=== PATIENT | female | born 1970 ===

== ENCOUNTER 2016-11-23 15:32 | Outpatient (CLI) | payer OTHER ==
[2016-11-23 16:30] LABS: Basophils % (Auto) 0.9 % (0.0-1.8); Hematocrit 34.2 % (30.3-42.9); Mean Corpuscular HGB Conc 32 % (30-34); Mean Corpuscular Hemoglobin 28 pg (28-32); Mean Corpuscular Volume 88 fl (79-97); Platelet Count 243 K/mm3 (140-440); Red Blood Count 3.88 M/mm3 (3.65-5.03); Red Cell Distribution Width 16.6 % (13.2-15.2); White Blood Count 7.4 K/mm3 (4.5-11.0)
[2016-11-23 19:51] LABS: Alanine Aminotransferase 14 units/L (7-56); Albumin/Globulin Ratio 1.2 %; Alkaline Phosphatase 78 units/L (35-129); Anion Gap 23 mmol/L; BUN/Creatinine Ratio 22.85; Bilirubin,Total 0.3 mg/dL (0.1-1.2); Blood Urea Nitrogen 16 mg/dL (7-17); Calcium 9.4 mg/dL (8.4-10.2); Carbon Dioxide 22 mmol/L (22-30); Chloride 98.7 mmol/L (98-107); Glucose 76 mg/dL (65-100); Iron 48 ug/dL (37-170); Potassium 4.1 mmol/L (3.6-5.0); Sodium 140 mmol/L (137-145); Total Iron Binding Capacity 232 mcg/dL (250-450); Total Protein 7.4 g/dL (6.3-8.2)
[2016-11-26 07:48] LABS: Vitamin D, 25-OH, Total 32 ng/mL (30-100)
== END 2016-11-23 15:33 | disposition home or self-care (01) ==
LOC: LABHHL 15:32
PROVIDERS: ATTEND Specialist
DX: Z09 Encounter for follow-up examination after completed treatment for conditions other than malignant neoplasm (principal); K90.49 Malabsorption due to intolerance, not elsewhere classified; K30 Functional dyspepsia; K90.9 Intestinal malabsorption, unspecified; D50.9 Iron deficiency anemia, unspecified; E55.9 Vitamin D deficiency, unspecified; E61.8 Deficiency of other specified nutrient elements; E56.9 Vitamin deficiency, unspecified; Z98.84 Bariatric surgery status
CPT/HCPCS: 36415; 80053; 82306; 82607; 83550; 83970; 84425; 85025